=== PATIENT | female | born 1950 | race Two or more races ===

== ENCOUNTER 2018-05-09 09:01 | Inpatient (IN) | payer MEDICAID ==
[~2018-05-09] VITALS: Ht 162.6 cm; Wt 72.6 kg
[2018-05-09] MEDS ORDERED: ONDANSETRON HCL 4MG/2ML INJ IV STA (10:39)
[2018-05-09 11:48] LABS: HEMATOCRIT. 43.4 % (36.0-48.0); HEMOGLOBIN. 14.6 g/dL (12.0-16.0); MEAN CORPUSCULAR HEMOGLOBIN 31.2 pg (28.0-32.0); MEAN CORPUSCULAR VOLUME 92.4 fL (81.0-99.0); MEAN PLATELET VOLUME 9.5 fl (7.4-10.4); PLATELET 136 x1000/uL (130-400); RED CELL DISTRIBUTION WIDTH 13.5 % (11.6-14.6)
[2018-05-09 11:50] LABS: CLARITY URINE CLEAR (CLEAR); COLOR URINE YELLOW (YELLOW); KETONES URINE NEGATIVE (NEGATIVE); LEUKOCYTE ESTERASE URINE NEGATIVE (NEGATIVE); NITRITE URINE NEGATIVE (NEGATIVE); OCCULT BLOOD URINE NEGATIVE (NEGATIVE); PH URINE 6.5 (4.5-8.0); PROTEIN URINE NEGATIVE (NEGATIVE); SPECIFIC GRAVITY URINE 1.007 (1.005-1.030); UROBILINOGEN URINE 0.2 E.U./dL (0.2-1.0)
[2018-05-09 12:01] LABS: CHLORIDE 108 mEq/L (98-107)
[2018-05-09 12:08] LABS: ETHANOL BLOOD < 10 mg/dL
[2018-05-09 12:14] LABS: PLATELET ESTIMATE NORMAL
[2018-05-09 12:15] LABS: *AMPHETAMINES SCREEN URINE NEGATIVE (NEGATIVE); *BARBITURATES SCREEN URINE NEGATIVE (NEGATIVE); *BENZODIAZEPINES SCREEN URINE NEGATIVE (NEGATIVE); *COCAINE SCREEN URINE NEGATIVE (NEGATIVE); CANNABINOID URINE SCREEN NEGATIVE (NEGATIVE); METHADONE URINE SCREEN NEGATIVE (NEGATIVE); OPIATES URINE SCREEN NEGATIVE (NEGATIVE); PHENCYCLIDINE URINE SCREEN NEGATIVE (NEGATIVE)
[2018-05-09] MEDS ORDERED: SODIUM CHLORIDE 0.9% 1,000 ML IV ONE (12:57)
[2018-05-09] MEDS ORDERED: PROCHLORPERAZINE 10MG/2ML VIAL IV PRN (13:00)
[2018-05-09] MEDS ORDERED: SODIUM CHLORIDE 0.45% 1,000 ML IV SCH (13:02)
[2018-05-09] MEDS ORDERED: ACETAMINOPHEN 325MG TABLET PO PRN (13:15)
[2018-05-09] MEDS ORDERED: IPRATROPIUM/ALBUTEROL 0.5-3(2.5)MG/3ML NEB INH PRN (13:15)
[2018-05-09] MEDS ORDERED: GUAIFENESIN 200MG/10ML SUGAR FREE UDC PO PRN (13:15)
[2018-05-09] MEDS ORDERED: CLONIDINE 0.1MG TABLET PO PRN (13:15)
[2018-05-09] MEDS ORDERED: NA PHOS,M-B/NA PHOS,DI-BA ENEMA 118ML PR PRN (13:15)
[2018-05-09] MEDS ORDERED: MAGNESIUM/ALUMINUM HYDROXIDE/SIMETHICONE 30ML UDC PO PRN (13:15)
[2018-05-09] MEDS ORDERED: HYDROCODONE/ACETAMINOPHEN 5/325MG TABLET PO PRN (13:15)
[2018-05-09] MEDS ORDERED: HYDROMORPHONE HCL/PF 2MG/ML CPJ IV PRN (13:15)
[2018-05-09] MEDS ORDERED: DIPHENHYDRAMINE 50MG/ML VIAL IV PRN (13:15)
[2018-05-09] MEDS ORDERED: ONDANSETRON HCL 4MG/2ML INJ IV PRN (13:15)
[2018-05-09] MEDS ORDERED: LORAZEPAM 2MG/ML CPJ IV PRN (13:15)
[2018-05-09] MEDS ORDERED: DOCUSATE SODIUM 100MG CAPSULE PO PRN (13:15)
[2018-05-09 16:33] LABS: CHLORIDE 112 mEq/L (98-107)
[2018-05-09] MEDS ORDERED: IBUP-2271 MT (17:13)
[2018-05-09 17:20] VITALS: BP 117/69
[2018-05-09] MEDS ORDERED: INFLUENZA VIRUS VACCINE(AFLURIA) 0.5ML SYR IM ONE (19:00)
[2018-05-09] MEDS ORDERED: PNEUMOCOCCAL 23-VAL P-SAC VAC 0.5 ML IM ONE (19:00)
[2018-05-09 20:00] VITALS: BP 108/53
[2018-05-10] VITALS: BP 115/61
[2018-05-10 04:00] VITALS: BP 108/61
[2018-05-10 07:11] LABS: HEMATOCRIT. 40.2 % (36.0-48.0); HEMOGLOBIN. 13.6 g/dL (12.0-16.0); MEAN CORPUSCULAR HEMOGLOBIN 30.9 pg (28.0-32.0); MEAN CORPUSCULAR VOLUME 91.2 fL (81.0-99.0); MEAN PLATELET VOLUME 9.9 fl (7.4-10.4); PLATELET 143 x1000/uL (130-400); RED BLOOD CELL COUNT 4.41 mill/uL (4.2-5.4); RED CELL DISTRIBUTION WIDTH 13.4 % (11.6-14.6)
[2018-05-10 08:00] VITALS: BP 163/82
[2018-05-10 08:52] VITALS: BP 115/62
[2018-05-10] MEDS ORDERED: ASPIRIN 81MG EC TABLET PO SCH (09:00)
[2018-05-10 09:59] LABS: CHLORIDE 109 mEq/L (98-107)
[2018-05-10 10:09] LABS: HDL CHOLESTEROL 53 mg/dL (40-59); LDL CHOLESTEROL 105 mg/dL (5-100); T4 FREE 0.92 ng/dL (0.76-1.46)
[2018-05-10 11:27] VITALS: BP_SYST 115; BP_SYST 124; BP_DIAS 62; BP_DIAS 71
[2018-05-10 11:36] LABS: PLATELET ESTIMATE NORMAL
[2018-05-10 12:00] VITALS: BP 124/71
== END 2018-05-10 14:16 | disposition home or self-care (01) | DRG 52 ==
LOC: ER 09:01 → 8WST 12:54 → EDBEDREQ 12:57 → EDBEDREQTM 12:57 → ENRESERV 15:29
PROVIDERS: ADMIT Internal Medicine; ATTEND Internal Medicine
DX: G93.41 Metabolic encephalopathy (principal); G45.9 Transient cerebral ischemic attack, unspecified; E86.0 Dehydration; I10 Essential (primary) hypertension
CPT/HCPCS: 36415; 70551; 71045; 80048; 80061; 80305; 84439; 84443; 84484; 93005; 96374; 96375; 99285; G0482; J2060; J2405; J7030